=== PATIENT | male | born 1955 | race Caucasian/White ===

== ENCOUNTER 2018-12-06 10:46 | Inpatient (IN) ==
[2018-12-06] MEDS ORDERED: MAGNESIUM SULF RIDER 2 GM in PREMIX 1 EACH IV PRN (14:14)
[2018-12-06] MEDS ORDERED: PROMETHAZINE 25 MG TABLET PO PRN (14:14)
[2018-12-06] MEDS ORDERED: MORPHINE 4 MG/1 ML VIAL IV PRN (14:14)
[2018-12-06] MEDS ORDERED: DOCUSATE SODIUM 100 MG CAPSULE PO PRN (14:14)
[2018-12-06] MEDS ORDERED: ZALEPLON 5 MG CAPSULE PO PRN (14:14)
[2018-12-06] MEDS ORDERED: ACETAMINOPHEN 325 MG TABLET PO PRN (14:14)
[2018-12-06] MEDS ORDERED: BISACODYL 5 MG TABLET PO PRN (14:14)
[2018-12-06] MEDS ORDERED: LACTULOSE 20 GM/30 ML UDCUP PO PRN (14:14)
[2018-12-06] MEDS ORDERED: MAGNESIUM SULF RIDER 4 GM in PREMIX 1 EACH IV PRN (14:14)
[2018-12-06] MEDS ORDERED: diphenhydrAMINE CAP 25 MG CAPSULE PO PRN (14:14)
[2018-12-06] MEDS ORDERED: ONDANSETRON 4 MG/2 ML VIAL IV PRN (14:14)
[2018-12-06] MEDS ORDERED: CETIRIZINE 10 MG TABLET PO PRN (14:28)
[2018-12-06] MEDS ORDERED: CARBOXYMETHYLCELLULOSE 1% OPH SOLN BOTH EYES PRN (14:28)
[2018-12-06 15:55] LABS: Basophils % 0.3 % (0.0-0.8); Eosinophils % 0.3 % (0.00-10.9); Hematocrit 34.5 VOL% (42.0-52.0); Hemoglobin 11.2 GM/DL (14.0-18.0); Immature Granulocytes % 0.5 %; Immature Granulocytes Absolute 0.05 #; Lymphocytes # 2.1 10*3/uL (1.4-4.0); Lymphocytes % 22.6 % (21.2-54.2); Mean Corpuscular HGB Conc 32.5 GM/DL (32-36); Mean Corpuscular Hemoglobin 31 PG (27-34); Mean Corpuscular Volume 95.3 FL (87-102); Mean Platelet Volume 10.4 FL (9.6-12.0); Monocytes # 0.8 10*3/uL (0.11-0.8); Monocytes % 7.9 % (1.7-12.7); Neutrophils # 6.5 10*3/uL (1.4-7.4); Neutrophils % 68.4 % (38.7-73.9); Platelet Count 369 T/CUMM (130-400); Red Blood Count 3.62 MC/CUMM (3.8-5.5); Red Cell Distribution Width 14.9 % (9.3-17.3); White Blood Count 9.5 T/CUMM (4-12)
[2018-12-06 16:28] LABS: Albumin 2.7 G/DL (3.4-5.0); Bilirubin,Total 2.1 MG/DL (0.2-1.0); Calcium 9.2 MG/DL (8.5-10.1); Osmolality,Calculated 267.2 MOS/KG (273-304); Potassium 3.4 MMOL/L (3.5-5.1); Total Protein 8.7 G/DL (6.4-8.3)
[2018-12-06 17:11] LABS: Risk Ratio 4.38; VLDL CHOLESTEROL 16.4 MG/DL
[2018-12-06] MEDS: POTASSIUM CHLORIDE 20 MEQ TABLET PO SCH ×2 (18:36→21:39)
[2018-12-06] MEDS: cefTRIAXone 1,000 MG in SYRINGE 1 EACH IV SCH (18:37)
[2018-12-06] MEDS ORDERED: amLODIPine 10 MG TABLET PO SCH (21:00)
[2018-12-06] MEDS: valACYclovir 500 MG TABLET PO SCH (21:38)
[2018-12-06] MEDS: guaiFENesin/DM ER 600-30 MG TABLET PO PRN (21:38)
[2018-12-06] MEDS: PANTOPRAZOLE 40 MG TABLET PO SCH (21:38)
[2018-12-06] MEDS: RANOLAZINE 500 MG TABLET PO SCH (21:39)
[2018-12-06] MEDS: ISOSORBIDE MONONITRATE 30 MG TABLET PO SCH (21:39)
[2018-12-06] MEDS: tiZANidine 4 MG TABLET PO SCH (21:40)
[2018-12-06] MEDS: FUROSEMIDE 40 MG TABLET PO SCH (21:42)
[2018-12-06 23:53] LABS: Apearance,Urine CLEAR (Clear); Bilirubin,Urine Negative (Negative); Blood, Urine Negative (Negative); Glucose,Urine (UA) Negative (Negative); Ketones,Urine Negative (Negative); Nitrite,Urine Negative (Negative); Protein,Urine 30 MG/DL; RBC,Urine 5 /HPF (0-4); Urine Color Yellow (Yellow); Urine Specific Gravity 1.059 (1.001-1.035); WBC,Urine 1 /HPF (0-6)
[2018-12-07 04:42] LABS: Basophils % 0.4 % (0.0-0.8); Eosinophils % 0.6 % (0.00-10.9); Hemoglobin 10.3 GM/DL (14.0-18.0); Immature Granulocytes % 0.6 %; Immature Granulocytes Absolute 0.04 #; Lymphocytes % 27.3 % (21.2-54.2); Mean Corpuscular HGB Conc 32.2 GM/DL (32-36); Mean Corpuscular Hemoglobin 31 PG (27-34); Mean Corpuscular Volume 96.1 FL (87-102); Mean Platelet Volume 10.8 FL (9.6-12.0); Monocytes # 0.7 10*3/uL (0.11-0.8); Monocytes % 9.1 % (1.7-12.7); Neutrophils # 4.5 10*3/uL (1.4-7.4); Platelet Count 342 T/CUMM (130-400); Red Blood Count 3.33 MC/CUMM (3.8-5.5); Red Cell Distribution Width 14.9 % (9.3-17.3); White Blood Count 7.3 T/CUMM (4-12)
[2018-12-07 05:09] LABS: Calcium 8.7 MG/DL (8.5-10.1); Osmolality,Calculated 271.1 MOS/KG (273-304); Potassium 3.7 MMOL/L (3.5-5.1)
[2018-12-07] MEDS: LEVOTHYROXINE 100 MCG TABLET PO SCH (06:28)
[2018-12-07] MEDS: FUROSEMIDE 40 MG TABLET PO SCH ×3 (08:55→15:28)
[2018-12-07] MEDS: RANOLAZINE 500 MG TABLET PO SCH ×2 (08:55→21:23)
[2018-12-07] MEDS: MONTELUKAST 10 MG TABLET PO SCH (08:55)
[2018-12-07] MEDS: MULTIVITAMIN (CENTRUM) TABLET PO SCH (08:55)
[2018-12-07] MEDS: guaiFENesin/DM ER 600-30 MG TABLET PO PRN (08:56)
[2018-12-07] MEDS: DOCUSATE SODIUM 100 MG CAPSULE PO SCH (08:56)
[2018-12-07] MEDS: hydroCHLOROthiazide 25 MG TABLET PO SCH (08:56)
[2018-12-07] MEDS: CHOLECALCIFEROL 5,000 UNIT TABLET PO SCH (08:56)
[2018-12-07] MEDS: CLOPIDOGREL 75 MG TABLET PO SCH (08:56)
[2018-12-07] MEDS: POTASSIUM CHLORIDE 20 MEQ TABLET PO SCH ×3 (08:57→21:25)
[2018-12-07] MEDS: NEBIVOLOL 5 MG TABLET PO SCH (08:58)
[2018-12-07] MEDS: DONEPEZIL 5 MG TABLET PO SCH (08:58)
[2018-12-07] MEDS: OMEGA 3 ACID ETHYL ESTERS 1 GM CAPSULE PO SCH (08:58)
[2018-12-07] MEDS: ASPIRIN EC 81 MG TABLET PO SCH (08:58)
[2018-12-07] MEDS: MODAFINIL 200 MG PO SCH (08:59)
[2018-12-07] MEDS ORDERED: PANTOPRAZOLE 40 MG TABLET PO SCH (09:00)
[2018-12-07] MEDS: POTASSIUM CHLORIDE 20 MEQ TABLET PO PRN (12:33)
[2018-12-07 13:16] LABS: % Iron Saturation 12.9 % (18-50); Ferritin 407.4 ng/ml (26-388)
[2018-12-07] MEDS: cefTRIAXone 1,000 MG in SYRINGE 1 EACH IV SCH (14:59)
[2018-12-07] MEDS: tiZANidine 4 MG TABLET PO SCH (21:23)
[2018-12-07] MEDS: valACYclovir 500 MG TABLET PO SCH (21:24)
[2018-12-07] MEDS: ISOSORBIDE MONONITRATE 30 MG TABLET PO SCH (21:26)
[2018-12-07] MEDS: PANTOPRAZOLE 40 MG TABLET PO SCH (21:26)
[2018-12-07] MEDS: amLODIPine 5 MG TABLET PO SCH (21:27)
[2018-12-08 04:33] LABS: Basophils % 0.4 % (0.0-0.8); Eosinophils # 0.1 10*3/uL (0.0-0.87); Eosinophils % 0.8 % (0.00-10.9); Hematocrit 32.3 VOL% (42.0-52.0); Hemoglobin 10.4 GM/DL (14.0-18.0); Immature Granulocytes % 0.4 %; Immature Granulocytes Absolute 0.03 #; Lymphocytes # 2.2 10*3/uL (1.4-4.0); Lymphocytes % 28.3 % (21.2-54.2); Mean Corpuscular HGB Conc 32.2 GM/DL (32-36); Mean Corpuscular Hemoglobin 31 PG (27-34); Mean Corpuscular Volume 95.6 FL (87-102); Mean Platelet Volume 10.9 FL (9.6-12.0); Monocytes # 0.6 10*3/uL (0.11-0.8); Monocytes % 8.1 % (1.7-12.7); Neutrophils # 4.7 10*3/uL (1.4-7.4); Platelet Count 339 T/CUMM (130-400); Red Blood Count 3.38 MC/CUMM (3.8-5.5); Red Cell Distribution Width 15.1 % (9.3-17.3); White Blood Count 7.6 T/CUMM (4-12)
[2018-12-08 04:51] LABS: Calcium 8.5 MG/DL (8.5-10.1); Osmolality,Calculated 270.1 MOS/KG (273-304); Potassium 3.1 MMOL/L (3.5-5.1)
[2018-12-08] MEDS: POTASSIUM CHLORIDE 20 MEQ TABLET PO PRN ×4 (06:37→17:04)
[2018-12-08] MEDS: LEVOTHYROXINE 100 MCG TABLET PO SCH (06:59)
[2018-12-08] MEDS: NEBIVOLOL 5 MG TABLET PO SCH (08:19)
[2018-12-08] MEDS: POTASSIUM CHLORIDE 20 MEQ TABLET PO SCH ×3 (08:19→21:36)
[2018-12-08] MEDS: hydroCHLOROthiazide 25 MG TABLET PO SCH (11:20)
[2018-12-08] MEDS: FUROSEMIDE 40 MG TABLET PO SCH ×2 (11:21→15:14)
[2018-12-08] MEDS: RANOLAZINE 500 MG TABLET PO SCH ×2 (11:21→21:36)
[2018-12-08] MEDS: CHOLECALCIFEROL 5,000 UNIT TABLET PO SCH (11:22)
[2018-12-08] MEDS: MONTELUKAST 10 MG TABLET PO SCH (11:22)
[2018-12-08] MEDS: MULTIVITAMIN (CENTRUM) TABLET PO SCH (11:22)
[2018-12-08] MEDS: OMEGA 3 ACID ETHYL ESTERS 1 GM CAPSULE PO SCH (11:22)
[2018-12-08] MEDS: CLOPIDOGREL 75 MG TABLET PO SCH (11:22)
[2018-12-08] MEDS: DOCUSATE SODIUM 100 MG CAPSULE PO SCH (11:23)
[2018-12-08] MEDS: DONEPEZIL 5 MG TABLET PO SCH (11:23)
[2018-12-08] MEDS: ASPIRIN EC 81 MG TABLET PO SCH (11:23)
[2018-12-08] MEDS: MODAFINIL 200 MG PO SCH (11:24)
[2018-12-08] MEDS ORDERED: LIDOCAINE 2% 5 ML VIAL ONE (12:00)
[2018-12-08] MEDS ORDERED: PROPOFOL 200 MG/20 ML VIAL IV ONE (12:00)
[2018-12-08] MEDS: ALBUTEROL/IPRATROPIUM 3 ML NEB RESP TX SCH ×2 (13:10→20:12)
[2018-12-08] MEDS: cefTRIAXone 1,000 MG in SYRINGE 1 EACH IV SCH (15:14)
[2018-12-08] MEDS: valACYclovir 500 MG TABLET PO SCH (21:35)
[2018-12-08] MEDS: amLODIPine 5 MG TABLET PO SCH (21:37)
[2018-12-08] MEDS: ISOSORBIDE MONONITRATE 30 MG TABLET PO SCH (21:37)
[2018-12-08] MEDS: PANTOPRAZOLE 40 MG TABLET PO SCH (21:38)
[2018-12-08] MEDS: tiZANidine 4 MG TABLET PO SCH (22:57)
[2018-12-09] MEDS: ALBUTEROL/IPRATROPIUM 3 ML NEB RESP TX SCH ×3 (00:59→13:30)
[2018-12-09 04:06] LABS: Basophils % 0.5 % (0.0-0.8); Eosinophils # 0.1 10*3/uL (0.0-0.87); Eosinophils % 0.7 % (0.00-10.9); Hematocrit 31.3 VOL% (42.0-52.0); Hemoglobin 10.1 GM/DL (14.0-18.0); Immature Granulocytes % 0.5 %; Immature Granulocytes Absolute 0.04 #; Lymphocytes % 26.5 % (21.2-54.2); Mean Corpuscular HGB Conc 32.3 GM/DL (32-36); Mean Corpuscular Hemoglobin 31 PG (27-34); Mean Corpuscular Volume 95.1 FL (87-102); Mean Platelet Volume 10.8 FL (9.6-12.0); Monocytes # 0.6 10*3/uL (0.11-0.8); Neutrophils # 4.7 10*3/uL (1.4-7.4); Neutrophils % 63.8 % (38.7-73.9); Platelet Count 349 T/CUMM (130-400); Red Blood Count 3.29 MC/CUMM (3.8-5.5); White Blood Count 7.4 T/CUMM (4-12)
[2018-12-09 04:32] LABS: Calcium 8.5 MG/DL (8.5-10.1); Potassium 3.3 MMOL/L (3.5-5.1)
[2018-12-09] MEDS: POTASSIUM CHLORIDE 20 MEQ TABLET PO PRN (05:30)
[2018-12-09] MEDS: CHOLECALCIFEROL 5,000 UNIT TABLET PO SCH (08:57)
[2018-12-09] MEDS: RANOLAZINE 500 MG TABLET PO SCH ×2 (08:57→21:00)
[2018-12-09] MEDS: FUROSEMIDE 40 MG TABLET PO SCH ×2 (08:57→15:57)
[2018-12-09] MEDS: MONTELUKAST 10 MG TABLET PO SCH (08:57)
[2018-12-09] MEDS: MULTIVITAMIN (CENTRUM) TABLET PO SCH (08:58)
[2018-12-09] MEDS: ASPIRIN EC 81 MG TABLET PO SCH (08:58)
[2018-12-09] MEDS: DOCUSATE SODIUM 100 MG CAPSULE PO SCH (08:58)
[2018-12-09] MEDS: LEVOTHYROXINE 100 MCG TABLET PO SCH (08:58)
[2018-12-09] MEDS: CLOPIDOGREL 75 MG TABLET PO SCH (08:58)
[2018-12-09] MEDS: hydroCHLOROthiazide 25 MG TABLET PO SCH (08:58)
[2018-12-09] MEDS: DONEPEZIL 5 MG TABLET PO SCH (08:59)
[2018-12-09] MEDS: NEBIVOLOL 5 MG TABLET PO SCH (09:00)
[2018-12-09] MEDS: POTASSIUM CHLORIDE 20 MEQ TABLET PO SCH ×3 (09:00→20:59)
[2018-12-09] MEDS: OMEGA 3 ACID ETHYL ESTERS 1 GM CAPSULE PO SCH (09:00)
[2018-12-09] MEDS: MODAFINIL 200 MG PO SCH (09:01)
[2018-12-09 10:22] LABS: Albumin 2.5 G/DL (3.4-5.0); Bilirubin,Direct 0.4 MG/DL (0.0-0.20); Bilirubin,Indirect 0.4 MG/DL (0.0-1.0); Bilirubin,Total 0.8 MG/DL (0.2-1.0); Total Protein 7.9 G/DL (6.4-8.3)
[2018-12-09] MEDS: cefTRIAXone 1,000 MG in SYRINGE 1 EACH IV SCH (15:57)
[2018-12-09] MEDS ORDERED: FUROSEMIDE 40 MG/4 ML VIAL IV ONE (19:00)
[2018-12-09] MEDS: ALBUTEROL 2.5 MG/3 ML NEB RESP TX SCH (19:44)
[2018-12-09] MEDS: valACYclovir 500 MG TABLET PO SCH (20:59)
[2018-12-09] MEDS: tiZANidine 4 MG TABLET PO SCH (21:00)
[2018-12-09] MEDS: ISOSORBIDE MONONITRATE 30 MG TABLET PO SCH (21:00)
[2018-12-09] MEDS: PANTOPRAZOLE 40 MG TABLET PO SCH (21:00)
[2018-12-10] MEDS: ALBUTEROL 2.5 MG/3 ML NEB RESP TX SCH ×2 (01:22→07:41)
[2018-12-10 04:11] LABS: Calcium 8.7 MG/DL (8.5-10.1); Osmolality,Calculated 269.2 MOS/KG (273-304); Potassium 3.4 MMOL/L (3.5-5.1)
[2018-12-10] MEDS: LEVOTHYROXINE 100 MCG TABLET PO SCH (06:19)
[2018-12-10] MEDS: RANOLAZINE 500 MG TABLET PO SCH (08:53)
[2018-12-10] MEDS: POTASSIUM CHLORIDE 20 MEQ TABLET PO SCH (08:53)
[2018-12-10] MEDS: CLOPIDOGREL 75 MG TABLET PO SCH (08:53)
[2018-12-10] MEDS: DOCUSATE SODIUM 100 MG CAPSULE PO SCH (08:53)
[2018-12-10] MEDS: DONEPEZIL 5 MG TABLET PO SCH (08:54)
[2018-12-10] MEDS: MULTIVITAMIN (CENTRUM) TABLET PO SCH (08:54)
[2018-12-10] MEDS: OMEGA 3 ACID ETHYL ESTERS 1 GM CAPSULE PO SCH (08:54)
[2018-12-10] MEDS: CHOLECALCIFEROL 5,000 UNIT TABLET PO SCH (08:54)
[2018-12-10] MEDS: NEBIVOLOL 5 MG TABLET PO SCH (08:55)
[2018-12-10] MEDS: MONTELUKAST 10 MG TABLET PO SCH (08:55)
[2018-12-10] MEDS: ASPIRIN EC 81 MG TABLET PO SCH (08:55)
[2018-12-10] MEDS: MODAFINIL 200 MG PO SCH (08:56)
[2018-12-10] MEDS: hydroCHLOROthiazide 25 MG TABLET PO SCH (08:56)
[2018-12-10] MEDS ORDERED: FUROSEMIDE 40 MG/4 ML VIAL IV SCH (09:00)
[2018-12-10 12:29] VITALS: BP 128/78
[2018-12-10 14:02] LABS: Smooth Muscle Antibody Negative (Negative)
== END 2018-12-10 12:59 | disposition home or self-care (01) | DRG 391 ==
LOC: N.2W 11:29 → N.TELEN 15:58
PROVIDERS: ADMIT Internal Medicine Cardiovascular Disease; ATTEND Internal Medicine Cardiovascular Disease